=== PATIENT | male | born 1990 | race African-American/Black ===

== ENCOUNTER 2016-09-03 15:14 | Emergency (ER) | payer MEDICAID ==
[~2016-09-03] VITALS: Ht 177.8 cm; Wt 83.0 kg
[2016-09-03] MEDS ORDERED: SODIUM CHLORIDE 0.9% 1,000 ML IV ONE (15:33)
[2016-09-03] MEDS ORDERED: ONDANSETRON HCL 4MG/2ML VIAL IV STA ×2 (15:33→17:13)
[2016-09-03] MEDS ORDERED: MORPHINE SULFATE 4 MG/ML CPJ (NOT FOR IM USE) IV STA ×2 (15:33→17:13)
[2016-09-03 16:16] LABS: HEMATOCRIT. 49.6 % (42.0-52.0); HEMOGLOBIN. 17.5 g/dL (14.0-18.0); MEAN CORPUSCULAR HEMOGLOBIN 31.5 pg (28.0-32.0); MEAN CORPUSCULAR VOLUME 89.6 fL (80.0-94.0); MEAN PLATELET VOLUME 9.1 fl (7.4-10.4); PLATELET 196 x1000/uL (130-400); RED BLOOD CELL COUNT 5.54 mill/uL (4.7-6.1); RED CELL DISTRIBUTION WIDTH 13.4 % (11.6-14.6)
[2016-09-03 16:20] LABS: INR 1.1; PROTHROMBIN TIME 11.3 sec
[2016-09-03 16:24] LABS: CARBON DIOXIDE 22 mEq/L (21-32); CHLORIDE 106 mEq/L (98-107)
[2016-09-03 17:11] LABS: ATYPICAL LYMPHOCYTES 2; PLATELET ESTIMATE NORMAL
[2016-09-03 17:44] LABS: GLUCOSE URINE TRACE (NEGATIVE); KETONES URINE 3+ (NEGATIVE); LEUKOCYTE ESTERASE URINE NEGATIVE (NEGATIVE); NITRITE URINE NEGATIVE (NEGATIVE); OCCULT BLOOD URINE NEGATIVE (NEGATIVE); PH URINE 7.5 (4.5-8.0); PROTEIN URINE 2+ (NEGATIVE); SPECIFIC GRAVITY URINE 1.033 (1.005-1.030)
[2016-09-03 17:46] LABS: COLOR URINE YELLOW (YELLOW)
[2016-09-03 17:47] LABS: CLARITY URINE CLEAR (CLEAR)
[2016-09-03 18:46] VITALS: BP 117/60
== END 2016-09-03 19:17 | disposition home or self-care (01) ==
LOC: ER 15:24
DX: R11.2 Nausea with vomiting, unspecified (principal); R10.13 Epigastric pain; F12.10 Cannabis abuse, uncomplicated
CPT/HCPCS: 36415; 76705; 80053; 81001; 83690; 85025; 85610; 96361; 96374; 96375; 96376; 99285; J2270; J2405; J7030; Z7610

== ENCOUNTER 2016-10-17 11:12 | Inpatient (IN) | payer MEDICAID ==
[~2016-10-17] VITALS: Ht 172.7 cm; Wt 72.6 kg
[2016-10-17] MEDS ORDERED: SODIUM CHLORIDE 0.9% 1,000 ML IV ONE (11:53)
[2016-10-17] MEDS ORDERED: MORPHINE SULFATE 4 MG/ML CPJ (NOT FOR IM USE) IV STA ×2 (11:53→12:41)
[2016-10-17] MEDS ORDERED: ONDANSETRON HCL 4MG/2ML VIAL IV STA (11:53)
[2016-10-17 12:46] LABS: HEMATOCRIT. 49.8 % (42.0-52.0); HEMOGLOBIN. 17.1 g/dL (14.0-18.0); MEAN CORPUSCULAR HEMOGLOBIN 31.1 pg (28.0-32.0); MEAN CORPUSCULAR VOLUME 90.6 fL (80.0-94.0); MEAN PLATELET VOLUME 8.8 fl (7.4-10.4); PLATELET 178 x1000/uL (130-400); RED CELL DISTRIBUTION WIDTH 13.8 % (11.6-14.6)
[2016-10-17 12:53] LABS: CHLORIDE 107 mEq/L (98-107)
[2016-10-17 12:59] LABS: CARBON DIOXIDE 24 mEq/L (21-32); ETHANOL BLOOD < 10 mg/dL
[2016-10-17 13:03] LABS: PLATELET ESTIMATE NORMAL
[2016-10-17] MEDS ORDERED: IPRATROPIUM/ALBUTEROL 0.5-3(2.5)MG/3ML NEB INH PRN (16:45)
[2016-10-17] MEDS ORDERED: CLONIDINE 0.1MG TABLET PO PRN (16:45)
[2016-10-17] MEDS ORDERED: ACETAMINOPHEN 325MG TABLET PO PRN (16:45)
[2016-10-17] MEDS ORDERED: ONDANSETRON HCL 4MG/2ML VIAL IV PRN (16:45)
[2016-10-17] MEDS ORDERED: MAGNESIUM/ALUMINUM HYDROXIDE/SIMETHICONE 30ML UDC PO PRN (16:45)
[2016-10-17] MEDS ORDERED: PANTOPRAZOLE 40MG DR TABLET PO SCH (16:45)
[2016-10-17] MEDS ORDERED: HYDROCODONE/ACETAMINOPHEN 5/325MG TABLET PO PRN (16:45)
[2016-10-17 17:15] LABS: CLARITY URINE CLOUDY (CLEAR); COLOR URINE YELLOW (YELLOW); KETONES URINE 3+ (NEGATIVE); LEUKOCYTE ESTERASE URINE NEGATIVE (NEGATIVE); NITRITE URINE NEGATIVE (NEGATIVE); OCCULT BLOOD URINE TRACE (NEGATIVE); PH URINE >=9.0 (4.5-8.0); PROTEIN URINE 1+ (NEGATIVE); SPECIFIC GRAVITY URINE 1.023 (1.005-1.030)
[2016-10-17 17:26] LABS: *AMPHETAMINES SCREEN URINE NEGATIVE (NEGATIVE); *BARBITURATES SCREEN URINE NEGATIVE (NEGATIVE); *BENZODIAZEPINES SCREEN URINE NEGATIVE (NEGATIVE); *COCAINE SCREEN URINE NEGATIVE (NEGATIVE); CANNABINOID URINE SCREEN PRESUMTIVE POSITIVE (NEGATIVE); METHADONE URINE SCREEN NEGATIVE (NEGATIVE); OPIATES URINE SCREEN PRESUMTIVE POSITIVE (NEGATIVE); PHENCYCLIDINE URINE SCREEN NEGATIVE (NEGATIVE)
[2016-10-17] MEDS ORDERED: POTASSIUM CHLORIDE 20MEQ TABLET SR PO SCH (17:55)
[2016-10-17] MEDS ORDERED: ENOXAPARIN 40MG/0.4ML SYR SUBCUT SCH (18:00)
[2016-10-17] MEDS ORDERED: SODIUM CHLORIDE 0.9% 1,000 ML IV SCH ×2 (18:00→20:00)
[2016-10-17] MEDS ORDERED: [UNRECOGNIZED DRUG - OTHER] (18:03)
[2016-10-17] MEDS ORDERED: EMTR1TAB11 PO (18:03)
[2016-10-17 20:00] VITALS: BP 123/77
== END 2016-10-17 21:45 | disposition left against medical advice (07) | DRG 251 ==
LOC: ER 11:48 → 6EST 15:13 → EDBEDREQTM 15:15 → EDBEDREQ 15:15 → ENRESERV 15:20 → CANBEDREQ 17:27
PROVIDERS: ADMIT Internal Medicine; ATTEND Internal Medicine
DX: R10.9 Unspecified abdominal pain (principal); I27.2 Other secondary pulmonary hypertension; R05 Cough; Z53.21 Procedure and treatment not carried out due to patient leaving prior to being seen by health care provider; E87.6 Hypokalemia; I10 Essential (primary) hypertension
CPT/HCPCS: 36415; 71010; 74176; 80053; 80305; 81001; 83690; 83735; 85025; 87040; 87536; 87804; 96361; 96374; 96375; 96376; 99285; G0482; J1650; J2270; J2405; J7030

== ENCOUNTER 2018-02-06 10:33 | Emergency (ER) | payer MEDICAID ==
[~2018-02-06] VITALS: Ht 172.7 cm; Wt 73.0 kg
[~2018-02-06 10:33] MED LIST: EMTR1TAB11 PO; [UNRECOGNIZED DRUG - OTHER]
[2018-02-06] MEDS ORDERED: SODIUM CHLORIDE 0.9% 1,000 ML IV ONE (10:54)
[2018-02-06] MEDS ORDERED: ONDANSETRON HCL 4MG/2ML INJ IV STA (10:54)
[2018-02-06] MEDS ORDERED: MORPHINE SULFATE 4 MG/ML CPJ (NOT FOR IM USE) IV STA (10:54)
[2018-02-06] MEDS ORDERED: LORAZEPAM 2MG/ML CPJ IV ONE (11:00)
[2018-02-06] MEDS ORDERED: MORPHINE SULFATE 10 MG/ML CPJ IV NR (11:06)
[2018-02-06 11:49] LABS: BASOPHILS % 0.4 % (0.0-2.0); HEMATOCRIT. 53.2 % (42.0-52.0); HEMOGLOBIN. 18.6 g/dL (14.0-18.0); MEAN CORPUSCULAR HEMOGLOBIN 32.1 pg (28.0-32.0); MEAN CORPUSCULAR VOLUME 91.7 fL (80.0-94.0); MEAN PLATELET VOLUME 9.4 fl (7.4-10.4); MONOCYTES % 6.3 % (2.0-8.0); NEUTROPHILS % 78.3 % (40.0-76.0); PLATELET 221 x1000/uL (130-400); RED CELL DISTRIBUTION WIDTH 13.5 % (11.6-14.6)
[2018-02-06 11:53] LABS: CHLORIDE 104 mEq/L (98-107)
[2018-02-06 11:54] LABS: INR 1.1; PROTHROMBIN TIME 10.9 sec (9.1-11.1)
[2018-02-06 12:29] LABS: CLARITY URINE CLEAR (CLEAR); COLOR URINE YELLOW (YELLOW); KETONES URINE 1+ (NEGATIVE); LEUKOCYTE ESTERASE URINE NEGATIVE (NEGATIVE); NITRITE URINE NEGATIVE (NEGATIVE); OCCULT BLOOD URINE NEGATIVE (NEGATIVE); PH URINE 7.5 (4.5-8.0); PROTEIN URINE 2+ (NEGATIVE); SPECIFIC GRAVITY URINE 1.027 (1.005-1.030)
[2018-02-06] MEDS ORDERED: KETOROLAC 30MG/ML VIAL IV NR (13:30)
[2018-02-06] MEDS ORDERED: IOHEXOL-300 100 ML BOTTLE ONE (15:12)
[2018-02-06] MEDS ORDERED: METOCLOPRAMIDE HCL 10MG/2ML VIAL IV ONE (15:15)
[2018-02-06 16:15] VITALS: BP 160/76
== END 2018-02-06 16:40 | disposition left against medical advice (07) ==
LOC: ER 10:33
DX: R10.84 Generalized abdominal pain (principal); R11.2 Nausea with vomiting, unspecified; R19.7 Diarrhea, unspecified; Z79.899 Other long term (current) drug therapy
CPT/HCPCS: 36415; 74177; 80053; 81003; 83690; 85025; 85610; 96361; 96374; 96375; 99284; J1885; J2060; J2270; J2405; J2765; J7030; Q9967

== ENCOUNTER 2021-04-16 16:49 | Emergency (ER) | payer MEDICAID ==
[~2021-04-16] VITALS: Ht 185.4 cm; Wt 77.0 kg
[2021-04-16] MEDS ORDERED: ONDANSETRON 4MG ODT PO STA (18:18)
[2021-04-16 18:57] LABS: HEMATOCRIT. 48.9 % (42.0-52.0); HEMOGLOBIN. 17.2 g/dL (14.0-18.0); MEAN CORPUSCULAR HEMOGLOBIN 31.6 pg (28.0-32.0); MEAN PLATELET VOLUME 8.6 fl (7.4-10.4); PLATELET 192 x1000/uL (130-400); RED BLOOD CELL COUNT 5.44 mill/uL (4.7-6.1); RED CELL DISTRIBUTION WIDTH 13.4 % (11.6-14.6)
[2021-04-16 19:03] LABS: CHLORIDE 107 mEq/L (98-107)
[2021-04-16 19:24] LABS: PLATELET ESTIMATE NORMAL
== END 2021-04-16 21:35 | disposition left against medical advice (07) ==
LOC: ER 16:49
DX: Z53.21 Procedure and treatment not carried out due to patient leaving prior to being seen by health care provider (principal)
CPT/HCPCS: 36415; 80053; 85025